=== PATIENT | male | born 1975 | race Caucasian/White ===

== ENCOUNTER 2019-05-17 22:13 | Inpatient (IN) ==
[2019-05-17] MEDS ORDERED: Sodium Bicarbonate 50 MEQ/50 ML VIAL ONE (22:21)
[2019-05-17] MEDS ORDERED: 0.9 % Sodium Chloride 1,000 ML ONE (22:23)
[2019-05-17] MEDS ORDERED: 0.9 % Sodium Chloride 1,000 ML IVC ONE (22:32)
[2019-05-17] MEDS ORDERED: *HR* Etomidate 20 MG/10 ML AMPUL IVP ONE (22:39)
[2019-05-17] MEDS ORDERED: Sodium Bicarbonate 50 MEQ/50 ML VIAL IVP ONE (22:39)
[2019-05-17] MEDS ORDERED: *HR* Rocuronium Bromide 50 MG/5 ML VIAL IVP ONE (22:39)
[2019-05-17 23:03] LABS: Basophils # 0.1 K/mcL (0.0-0.2); Basophils % 1.1 %; Eosinophils % 0.8 %; Hematocrit 48.2 % (37.5-50.1); Hemoglobin 17.1 g/dL (12.9-16.9); Immature Granulocytes % 0.4 % (0-4); Lymphocytes # 1.7 K/mcL (0.6-4.6); Lymphocytes % 36.6 %; Mean Corpuscular HGB Conc 35.5 g/dL (31.6-35.5); Mean Corpuscular Volume 98.8 fL (83.0-100.0); Mean Platelet Volume 9.7 fL (9.4-12.4); Monocytes # 0.5 K/mcL (0.0-1.3); Monocytes % 11.4 %; Neutrophils # 2.4 K/mcL (1.6-8.9); Platelet Count 266 K/mcL (140-400); Red Blood Count 4.88 M/mcL (4.19-5.50); Red Cell Distribution Width 11.9 % (11.5-14.5); Segmented Neutrophils % 49.7 %; White Blood Count 4.8 K/mcL (4.3-11.1)
[2019-05-17] MEDS ORDERED: *HR* Midazolam HCl 5 MG/5 ML VIAL IVP STA (23:16)
[2019-05-17] MEDS ORDERED: *HR* Midazolam HCl 5 MG/5 ML VIAL IVP ONE (23:16)
[2019-05-17 23:20] LABS: Acetaminophen < 10 mcg/mL (10-20); Alanine Aminotransferase 20 Units/L (7-52); Albumin 4.7 g/dL (3.5-5.7); Albumin/Globulin Ratio 1.7 (1.1-2.2); Alkaline Phosphatase 51 Units/L (34-104); Aspartate Amino Transferase 25 Units/L (13-39); BUN/Creatinine Ratio 11 (6-26); Bilirubin,Direct 0.1 mg/dL (0.0-0.2); Bilirubin,Indirect 0.3 mg/dL (0.0-1.0); Bilirubin,Total 0.4 mg/dL (0.3-1.0); Blood Urea Nitrogen 9 mg/dL (6-20); Calcium 9.3 mg/dL (8.6-10.3); Carbon Dioxide 28 mEq/L (23-29); Chloride 98 mEq/L (98-107); Ethanol 278 mg/dL (Less than 10); Globulin 2.8 g/dL (2.4-3.5); Glucose 87 mg/dL (70-105); Osmolality,Calculated 286 (280-300); Potassium 3.5 mEq/L (3.5-5.1); Salicylate < 2.5 mg/dL (15.0-30.0); Sodium 139 mEq/L (136-145); Total Protein 7.5 g/dL (6.4-8.9); eGFR For African Americans > 60 (> 60); eGFR For Non-African Americans > 60 (> 60)
[2019-05-17 23:21] LABS: Bilirubin,Urine Negative (Negative); Blood,Urine Negative (Negative); Clarity,Urine Clear (Clear); Color,Urine Yellow (Yellow); Glucose,Urine (UA) Normal (Normal); Ketones,Urine Negative (Negative); Leukocyte Esterase,Urine Negative (Negative); Nitrite,Urine Negative (Negative); Protein,Urine Negative (Neg-Trace); Specific Gravity,Urine 1.008 (1.010-1.025); Urobilinogen,Urine Normal (Normal)
[2019-05-17] MEDS: FentaNYL (PF) 1,000 MCG in 0.9 % Sodium Chloride 80 ML IVC STA (23:37)
[2019-05-17 23:38] LABS: Amphetamine Screen,Urine Negative ng/mL (Cutoff=1000); Barbiturate Screen,Urine Negative ng/mL (Cutoff=200); Benzodiazepines Screen,Urine Negative ng/mL (Cutoff=200); Cannabinoid Screen,Urine Positive ng/mL (Cutoff = 50); Cocaine Screen,Urine Negative ng/mL (Cutoff= 300); Opiate Screen,Urine Negative ng/mL (Cutoff=300); Phencyclidine Screen,Urine Negative ng/mL (Cutoff=25)
[2019-05-17] MEDS ORDERED: *HR* LORazepam 2 MG/ML VIAL ONE (23:42)
[2019-05-17] MEDS ORDERED: *HR* LORazepam 2 MG/ML VIAL IVP ONE (23:45)
[2019-05-17 23:54] LABS: Magnesium 2.2 mg/dL (1.6-2.6)
[2019-05-18] MEDS ORDERED: Naloxone 0.4 MG/ML INJ IVP PRN (01:41)
[2019-05-18] MEDS: Ringers Solution, Lactated 1,000 ML IVC SCH ×5 (03:21→23:41)
[2019-05-18 04:55] LABS: Hematocrit 47.1 % (37.5-50.1); Hemoglobin 16.6 g/dL (12.9-16.9); Mean Corpuscular HGB Conc 35.2 g/dL (31.6-35.5); Mean Corpuscular Hemoglobin 35.3 pg (28.0-33.3); Mean Corpuscular Volume 100.2 fL (83.0-100.0); Mean Platelet Volume 9.7 fL (9.4-12.4); Platelet Count 248 K/mcL (140-400); Red Cell Distribution Width 12.1 % (11.5-14.5); White Blood Count 6.4 K/mcL (4.3-11.1)
[2019-05-18 04:57] LABS: ABG Base Excess 0 mEq/L (-2 to 3); ABG HCO3 24 mEq/L (21-27); ABG Oxygen Saturation 97 % (95-98); ABG PCO2 38 mmHg (35-45); ABG PH 7.41 pH Units (7.32-7.45); ABG PO2 94 mmHg (85-104); ABG TCO2 25 mEq/L (20-26); Blood Gas Modality ASSIST CONTROL; Blood Gas VT 500 cc
[2019-05-18 05:03] LABS: Prothrombin Time 11.7 Seconds (9.4-12.1)
[2019-05-18 05:05] LABS: Activated Partial Thrombo Time 31.3 Seconds (26.0-36.0)
[2019-05-18 05:10] LABS: Alanine Aminotransferase 18 Units/L (7-52); Albumin 4.3 g/dL (3.5-5.7); Albumin/Globulin Ratio 1.7 (1.1-2.2); Alkaline Phosphatase 47 Units/L (34-104); Aspartate Amino Transferase 23 Units/L (13-39); BUN/Creatinine Ratio 12 (6-26); Bilirubin,Total 0.5 mg/dL (0.3-1.0); Blood Urea Nitrogen 10 mg/dL (6-20); Carbon Dioxide 23 mEq/L (23-29); Chloride 104 mEq/L (98-107); Globulin 2.5 g/dL (2.4-3.5); Glucose 67 mg/dL (70-105); Osmolality,Calculated 289 (280-300); Phosphorous 3.3 mg/dL (2.7-4.5); Potassium 3.5 mEq/L (3.5-5.1); Sodium 141 mEq/L (136-145); Total Protein 6.8 g/dL (6.4-8.9); eGFR For African Americans > 60 (> 60); eGFR For Non-African Americans > 60 (> 60)
[2019-05-18 05:12] LABS: Troponin I < 0.03 ng/mL (< 0.04)
[2019-05-18] MEDS: FentaNYL (PF) 1,000 MCG in 0.9 % Sodium Chloride 80 ML IVC STA ×2 (07:00→15:05)
[2019-05-18] MEDS: *HR* Heparin 5,000 UNIT/ML VIAL SQ SCH ×3 (08:10→23:41)
[2019-05-18] MEDS ORDERED: *HR* Etomidate 20 MG/10 ML AMPUL IVP ONE (08:14)
[2019-05-18] MEDS ORDERED: *HR* Rocuronium Bromide 100 MG/10 ML VIAL IVC ONE (08:14)
[2019-05-18] MEDS: *HR* LORazepam 2 MG/ML VIAL IVP PRN (08:17)
[2019-05-18] MEDS ORDERED: Artificial Tears SOLN 15 ML BOTTLE BOTH EYES PRN (08:32)
[2019-05-18] MEDS: Pantoprazole 40 MG VIAL IVP SCH (09:59)
[2019-05-18] MEDS: Chlorhexidine Rinse 15 ML MOUTHWASH MM SCH ×2 (09:59→20:36)
[2019-05-18] MEDS ORDERED: *HR* Dextrose 50 % in Water (Syg) 50 ML SYRINGE IVP ONE (11:14)
[2019-05-18] MEDS: Artificial Tears SOLN 15 ML BOTTLE BOTH EYES SCH ×4 (11:42→23:42)
[2019-05-18] MEDS: *HR* Dextrose 50 % in Water (Syg) 50 ML SYRINGE IVP PRN ×6 (15:09→22:43)
[2019-05-18] MEDS ORDERED: D5% in Water 1,000 ML IVC SCH (16:00)
[2019-05-18] MEDS: FentaNYL (PF) 1,000 MCG in 0.9 % Sodium Chloride 80 ML IVC SCH (22:15)
[2019-05-18] MEDS: D10% in Water 500 ML IVC SCH (23:38)
[2019-05-19] MEDS: Artificial Tears SOLN 15 ML BOTTLE BOTH EYES SCH ×6 (04:10→23:29)
[2019-05-19] MEDS: D10% in Water 500 ML IVC SCH ×3 (04:12→12:32)
[2019-05-19 04:50] LABS: ABG Base Excess 3 mEq/L (-2 to 3); ABG HCO3 29 mEq/L (21-27); ABG Oxygen Saturation 94 % (95-98); ABG PCO2 44 mmHg (35-45); ABG PH 7.42 pH Units (7.32-7.45); ABG PO2 70 mmHg (85-104); ABG TCO2 30 mEq/L (20-26); Blood Gas Modality ASSIST CONTROL; Blood Gas VT 500 cc
[2019-05-19] MEDS: Ringers Solution, Lactated 1,000 ML IVC SCH ×2 (07:26→11:38)
[2019-05-19] MEDS: Chlorhexidine Rinse 15 ML MOUTHWASH MM SCH ×2 (07:30→20:06)
[2019-05-19] MEDS: *HR* Heparin 5,000 UNIT/ML VIAL SQ SCH (07:30)
[2019-05-19] MEDS: Pantoprazole 40 MG VIAL IVP SCH (07:30)
[2019-05-19] MEDS: *HR* Dextrose 50 % in Water (Syg) 50 ML SYRINGE IVP PRN ×3 (11:10→13:33)
[2019-05-19] MEDS: FentaNYL (PF) 1,000 MCG in 0.9 % Sodium Chloride 80 ML IVC SCH (11:37)
[2019-05-19 11:55] LABS: ABG Base Excess 3 mEq/L (-2 to 3); ABG HCO3 30 mEq/L (21-27); ABG Oxygen Saturation 91 % (95-98); ABG PCO2 54 mmHg (35-45); ABG PH 7.36 pH Units (7.32-7.45); ABG PO2 64 mmHg (85-104); ABG TCO2 32 mEq/L (20-26); Blood Gas Modality VC; Blood Gas VT 500 cc
[2019-05-19] MEDS ORDERED: Aminoglycoside Consult 1 EACH MC ONE (12:51)
[2019-05-19] MEDS ORDERED: Isovue-370 500 ML BOTTLE IVP ONE (12:57)
[2019-05-19 13:41] LABS: Prothrombin Time 11.5 Seconds (9.4-12.1)
[2019-05-19 14:03] LABS: Basophils % 0.6 %; Eosinophils # 0.1 K/mcL (0.0-0.6); Eosinophils % 1.2 %; Hematocrit 45.1 % (37.5-50.1); Hemoglobin 15.3 g/dL (12.9-16.9); Immature Granulocytes % 0.3 % (0-4); Lymphocytes # 1.3 K/mcL (0.6-4.6); Lymphocytes % 19.4 %; Mean Corpuscular HGB Conc 33.9 g/dL (31.6-35.5); Mean Corpuscular Hemoglobin 34.8 pg (28.0-33.3); Mean Platelet Volume 9.5 fL (9.4-12.4); Monocytes # 1.1 K/mcL (0.0-1.3); Monocytes % 15.6 %; Neutrophils # 4.2 K/mcL (1.6-8.9); Platelet Count 177 K/mcL (140-400); Red Cell Distribution Width 12.4 % (11.5-14.5); Segmented Neutrophils % 62.9 %; White Blood Count 6.7 K/mcL (4.3-11.1)
[2019-05-19] MEDS ORDERED: *HR* Heparin 5,000 UNIT/ML VIAL IVP ONE (14:03)
[2019-05-19] MEDS ORDERED: *HR* Heparin 5,000 UNIT/ML VIAL IVP PRN (14:03)
[2019-05-19 14:04] LABS: BUN/Creatinine Ratio 11 (6-26); Blood Urea Nitrogen 10 mg/dL (6-20); Calcium 8.6 mg/dL (8.6-10.3); Carbon Dioxide 17 mEq/L (23-29); Chloride 95 mEq/L (98-107); Glucose 74 mg/dL (70-105); Osmolality,Calculated 266 (280-300); Phosphorous 4.8 mg/dL (2.7-4.5); Potassium 3.6 mEq/L (3.5-5.1); Sodium 129 mEq/L (136-145); eGFR For African Americans > 60 (> 60); eGFR For Non-African Americans > 60 (> 60)
[2019-05-19 14:04] LABS: Mean Corpuscular Volume 102.5 fL (83.0-100.0)
[2019-05-19] MEDS ORDERED: Perflutren Lipid Microsphere 1.3 ML in 0.9 % Sodium Chloride 8.7 ML IVP ONE (14:48)
[2019-05-19] MEDS ORDERED: Perflutren Lipid Microsphere 2 ML VIAL ONE (14:59)
[2019-05-19] MEDS: Heparin 25,000 UNIT/250 ML D5W 25,000 UNIT/250 ML IV.SOLN IVC SCH (15:15)
[2019-05-19] MEDS ORDERED: D10% in Water 500 ML IVC SCH (15:45)
[2019-05-19] MEDS: WATER IVC SCH (16:18)
[2019-05-19] MEDS: DEXTROSE IVC SCH (16:18)
[2019-05-19] MEDS: NACL IVC SCH (16:18)
[2019-05-19] MEDS: D5 IVC SCH (16:18)
[2019-05-19] MEDS: Doxycycline 100 MG in 0.9 % Sodium Chloride Mini Bag 100 ML IVPB SCH (17:19)
[2019-05-19] MEDS: Piperacillin/Tazobactam 3.375 GM in 0.9 % Sodium Chloride Mini Bag 100 ML IVPB SCH (18:16)
[2019-05-19] MEDS ORDERED: Furosemide 20 MG/2 ML VIAL IVP ONE (22:05)
[2019-05-19] MEDS ORDERED: Hydrocortisone Sodium Succ 100 MG/2 ML VIAL IVP SCH (22:09)
[2019-05-19] MEDS: MethylPREDNISolone 40 MG/ML VIAL IVP SCH (23:09)
[2019-05-20] MEDS: WATER IVC SCH ×4 (00:20→23:12)
[2019-05-20] MEDS: D5 IVC SCH ×4 (00:20→23:12)
[2019-05-20] MEDS: NACL IVC SCH ×4 (00:20→23:12)
[2019-05-20] MEDS: DEXTROSE IVC SCH ×4 (00:20→23:12)
[2019-05-20] MEDS: Ringers Solution, Lactated 1,000 ML IVC SCH ×4 (00:21→23:12)
[2019-05-20] MEDS: Piperacillin/Tazobactam 3.375 GM in 0.9 % Sodium Chloride Mini Bag 100 ML IVPB SCH ×3 (01:35→17:35)
[2019-05-20] MEDS: Artificial Tears SOLN 15 ML BOTTLE BOTH EYES SCH ×6 (03:43→23:44)
[2019-05-20 04:17] LABS: ABG Base Excess 5 mEq/L (-2 to 3); ABG HCO3 31 mEq/L (21-27); ABG Oxygen Saturation 96 % (95-98); ABG PCO2 50 mmHg (35-45); ABG PO2 84 mmHg (85-104); ABG TCO2 33 mEq/L (20-26); Blood Gas Modality AF; Blood Gas VT 500 cc
[2019-05-20 05:01] LABS: Basophils % 0.1 %; Hematocrit 43.2 % (37.5-50.1); Hemoglobin 14.9 g/dL (12.9-16.9); Immature Granulocytes % 0.4 % (0-4); Lymphocytes # 0.3 K/mcL (0.6-4.6); Lymphocytes % 4.8 %; Mean Corpuscular HGB Conc 34.5 g/dL (31.6-35.5); Mean Corpuscular Hemoglobin 34.9 pg (28.0-33.3); Mean Corpuscular Volume 101.2 fL (83.0-100.0); Mean Platelet Volume 10.2 fL (9.4-12.4); Monocytes # 0.2 K/mcL (0.0-1.3); Monocytes % 2.3 %; Neutrophils # 6.5 K/mcL (1.6-8.9); Platelet Count 185 K/mcL (140-400); Red Blood Count 4.27 M/mcL (4.19-5.50); Red Cell Distribution Width 11.9 % (11.5-14.5); Segmented Neutrophils % 92.4 %; White Blood Count 7.1 K/mcL (4.3-11.1)
[2019-05-20 05:20] LABS: BUN/Creatinine Ratio 5 (6-26); Blood Urea Nitrogen 5 mg/dL (6-20); Calcium 8.8 mg/dL (8.6-10.3); Carbon Dioxide 29 mEq/L (23-29); Chloride 101 mEq/L (98-107); Glucose 214 mg/dL (70-105); Osmolality,Calculated 286 (280-300); Potassium 3.6 mEq/L (3.5-5.1); Sodium 136 mEq/L (136-145); eGFR For African Americans > 60 (> 60); eGFR For Non-African Americans > 60 (> 60)
[2019-05-20] MEDS: MethylPREDNISolone 40 MG/ML VIAL IVP SCH (05:33)
[2019-05-20] MEDS: Doxycycline 100 MG in 0.9 % Sodium Chloride Mini Bag 100 ML IVPB SCH ×2 (05:34→17:34)
[2019-05-20] MEDS: Chlorhexidine Rinse 15 ML MOUTHWASH MM SCH ×2 (08:17→20:04)
[2019-05-20] MEDS: Pantoprazole 40 MG VIAL IVP SCH (08:17)
[2019-05-20] MEDS ORDERED: Thiamine (B-1) 100 MG in 0.9 % Sodium Chloride 50 ML IVPB ONE (08:21)
[2019-05-20] MEDS: Multivitamin Liquid 15 ML UDC GTUBE SCH (09:52)
[2019-05-20 10:14] LABS: Alanine Aminotransferase 11 Units/L (7-52); Albumin 3.6 g/dL (3.5-5.7); Albumin/Globulin Ratio 1.4 (1.1-2.2); Alkaline Phosphatase 48 Units/L (34-104); Aspartate Amino Transferase 13 Units/L (13-39); Bilirubin,Direct 0.1 mg/dL (0.0-0.2); Bilirubin,Indirect 0.3 mg/dL (0.0-1.0); Bilirubin,Total 0.4 mg/dL (0.3-1.0); Globulin 2.5 g/dL (2.4-3.5); Total Protein 6.1 g/dL (6.4-8.9)
[2019-05-20 10:26] LABS: Thyroid Stimulating Hormone 0.567 mcIU/mL (0.340-5.600)
[2019-05-20] MEDS: Hydrocortisone Sodium Succ 100 MG/2 ML VIAL IVP SCH ×3 (12:02→23:46)
[2019-05-20] MEDS: Heparin 25,000 UNIT/250 ML D5W 25,000 UNIT/250 ML IV.SOLN IVC SCH (15:00)
[2019-05-20] MEDS: Sennosides 8.6 MG TABLET PO SCH (15:36)
[2019-05-20] MEDS: 0.9 % Sodium Chloride w KCl 20 MEQ/1,000 ML MLS IVC SCH (16:50)
[2019-05-20 17:47] LABS: BUN/Creatinine Ratio 8 (6-26); Blood Urea Nitrogen 6 mg/dL (6-20); Calcium 9.1 mg/dL (8.6-10.3); Carbon Dioxide 23 mEq/L (23-29); Chloride 105 mEq/L (98-107); Glucose 135 mg/dL (70-105); Magnesium 1.8 mg/dL (1.6-2.6); Osmolality,Calculated 288 (280-300); Potassium 3.7 mEq/L (3.5-5.1); Sodium 139 mEq/L (136-145); eGFR For African Americans > 60 (> 60); eGFR For Non-African Americans > 60 (> 60)
[2019-05-21] MEDS: Piperacillin/Tazobactam 3.375 GM in 0.9 % Sodium Chloride Mini Bag 100 ML IVPB SCH ×3 (02:30→17:16)
[2019-05-21] MEDS: 0.9 % Sodium Chloride w KCl 20 MEQ/1,000 ML MLS IVC SCH ×3 (03:43→20:57)
[2019-05-21] MEDS: Artificial Tears SOLN 15 ML BOTTLE BOTH EYES SCH ×6 (03:43→23:19)
[2019-05-21 04:12] LABS: Basophils % 0.1 %; Hemoglobin 14.2 g/dL (12.9-16.9); Immature Granulocytes % 0.5 % (0-4); Lymphocytes % 4.9 %; Mean Corpuscular HGB Conc 33.8 g/dL (31.6-35.5); Mean Corpuscular Hemoglobin 35.1 pg (28.0-33.3); Mean Corpuscular Volume 103.7 fL (83.0-100.0); Mean Platelet Volume 10.5 fL (9.4-12.4); Monocytes % 6.3 %; Platelet Count 193 K/mcL (140-400); Red Blood Count 4.05 M/mcL (4.19-5.50); Red Cell Distribution Width 11.9 % (11.5-14.5); Segmented Neutrophils % 88.2 %
[2019-05-21 04:13] LABS: Lymphocytes # 0.6 K/mcL (0.6-4.6); Monocytes # 0.8 K/mcL (0.0-1.3); Neutrophils # 10.5 K/mcL (1.6-8.9); White Blood Count 11.9 K/mcL (4.3-11.1)
[2019-05-21 04:27] LABS: BUN/Creatinine Ratio 11 (6-26); Blood Urea Nitrogen 8 mg/dL (6-20); Calcium 8.7 mg/dL (8.6-10.3); Carbon Dioxide 25 mEq/L (23-29); Chloride 106 mEq/L (98-107); Glucose 162 mg/dL (70-105); Osmolality,Calculated 290 (280-300); Potassium 4.2 mEq/L (3.5-5.1); Sodium 139 mEq/L (136-145); eGFR For African Americans > 60 (> 60); eGFR For Non-African Americans > 60 (> 60)
[2019-05-21 04:41] LABS: ABG Base Excess 0 mEq/L (-2 to 3); ABG HCO3 26 mEq/L (21-27); ABG Oxygen Saturation 97 % (95-98); ABG PCO2 46 mmHg (35-45); ABG PH 7.36 pH Units (7.32-7.45); ABG PO2 96 mmHg (85-104); ABG TCO2 28 mEq/L (20-26); Blood Gas Modality VC; Blood Gas VT 500 cc
[2019-05-21] MEDS: Doxycycline 100 MG in 0.9 % Sodium Chloride Mini Bag 100 ML IVPB SCH ×2 (05:59→17:15)
[2019-05-21] MEDS: Hydrocortisone Sodium Succ 100 MG/2 ML VIAL IVP SCH ×4 (05:59→23:21)
[2019-05-21] MEDS: WATER IVC SCH (07:56)
[2019-05-21] MEDS: NACL IVC SCH (07:56)
[2019-05-21] MEDS: Ringers Solution, Lactated 1,000 ML IVC SCH ×3 (07:56→20:49)
[2019-05-21] MEDS: DEXTROSE IVC SCH (07:56)
[2019-05-21] MEDS: D5 IVC SCH (07:56)
[2019-05-21] MEDS: Sennosides 8.6 MG TABLET PO SCH (09:07)
[2019-05-21] MEDS: Chlorhexidine Rinse 15 ML MOUTHWASH MM SCH ×2 (09:07→19:58)
[2019-05-21] MEDS: Multivitamin Liquid 15 ML UDC GTUBE SCH (09:07)
[2019-05-21] MEDS: Pantoprazole 40 MG VIAL IVP SCH (09:07)
[2019-05-21] MEDS: Thiamine (B-1) 100 MG in 0.9 % Sodium Chloride 50 ML IVPB SCH (09:10)
[2019-05-21] MEDS: Heparin 25,000 UNIT/250 ML D5W 25,000 UNIT/250 ML IV.SOLN IVC SCH (13:45)
[2019-05-21 17:22] LABS: Basophils % 0.1 %; Hematocrit 40.1 % (37.5-50.1); Hemoglobin 13.6 g/dL (12.9-16.9); Immature Granulocytes % 0.6 % (0-4); Lymphocytes # 0.4 K/mcL (0.6-4.6); Mean Corpuscular HGB Conc 33.9 g/dL (31.6-35.5); Mean Corpuscular Volume 106.1 fL (83.0-100.0); Mean Platelet Volume 10.6 fL (9.4-12.4); Monocytes # 0.7 K/mcL (0.0-1.3); Monocytes % 6.9 %; Neutrophils # 9.4 K/mcL (1.6-8.9); Platelet Count 205 K/mcL (140-400); Red Blood Count 3.78 M/mcL (4.19-5.50); Segmented Neutrophils % 88.4 %; White Blood Count 10.6 K/mcL (4.3-11.1)
[2019-05-22] MEDS: *HR* Dextrose 50 % in Water (Syg) 50 ML SYRINGE IVP PRN ×3 (01:37→05:22)
[2019-05-22] MEDS: Piperacillin/Tazobactam 3.375 GM in 0.9 % Sodium Chloride Mini Bag 100 ML IVPB SCH ×3 (01:37→17:28)
[2019-05-22] MEDS: Artificial Tears SOLN 15 ML BOTTLE BOTH EYES SCH ×5 (03:45→20:22)
[2019-05-22 04:51] LABS: ABG Base Excess 6 mEq/L (-2 to 3); ABG HCO3 31 mEq/L (21-27); ABG Oxygen Saturation 94 % (95-98); ABG PCO2 47 mmHg (35-45); ABG PH 7.43 pH Units (7.32-7.45); ABG PO2 71 mmHg (85-104); ABG TCO2 32 mEq/L (20-26); Blood Gas Modality ASSIST CONTROL; Blood Gas VT 500 cc
[2019-05-22 05:01] LABS: Hematocrit 38.2 % (37.5-50.1); Hemoglobin 12.8 g/dL (12.9-16.9); Immature Granulocytes % 0.5 % (0-4); Lymphocytes # 0.7 K/mcL (0.6-4.6); Lymphocytes % 7.7 %; Mean Corpuscular HGB Conc 33.5 g/dL (31.6-35.5); Mean Corpuscular Hemoglobin 35.6 pg (28.0-33.3); Mean Corpuscular Volume 106.1 fL (83.0-100.0); Mean Platelet Volume 10.4 fL (9.4-12.4); Monocytes # 0.7 K/mcL (0.0-1.3); Monocytes % 7.9 %; Neutrophils # 7.8 K/mcL (1.6-8.9); Platelet Count 222 K/mcL (140-400); Red Cell Distribution Width 11.9 % (11.5-14.5); Segmented Neutrophils % 83.9 %; White Blood Count 9.2 K/mcL (4.3-11.1)
[2019-05-22 05:17] LABS: Alanine Aminotransferase 10 Units/L (7-52); Albumin 3.2 g/dL (3.5-5.7); Albumin/Globulin Ratio 1.4 (1.1-2.2); Alkaline Phosphatase 39 Units/L (34-104); Aspartate Amino Transferase 13 Units/L (13-39); BUN/Creatinine Ratio 18 (6-26); Bilirubin,Total 0.3 mg/dL (0.3-1.0); Blood Urea Nitrogen 12 mg/dL (6-20); Calcium 8.4 mg/dL (8.6-10.3); Carbon Dioxide 28 mEq/L (23-29); Chloride 107 mEq/L (98-107); Globulin 2.3 g/dL (2.4-3.5); Glucose 217 mg/dL (70-105); Osmolality,Calculated 298 (280-300); Potassium 3.8 mEq/L (3.5-5.1); Sodium 141 mEq/L (136-145); Total Protein 5.5 g/dL (6.4-8.9); eGFR For African Americans > 60 (> 60); eGFR For Non-African Americans > 60 (> 60)
[2019-05-22] MEDS ORDERED: D5% in 0.9% NACL 1,000 ML IVC SCH (05:30)
[2019-05-22 05:48] LABS: Lipase 48 Units/L (11-82)
[2019-05-22] MEDS: Doxycycline 100 MG in 0.9 % Sodium Chloride Mini Bag 100 ML IVPB SCH (06:05)
[2019-05-22] MEDS: Hydrocortisone Sodium Succ 100 MG/2 ML VIAL IVP SCH ×2 (06:06→11:21)
[2019-05-22] MEDS: 0.9 % Sodium Chloride w KCl 20 MEQ/1,000 ML MLS IVC SCH (07:46)
[2019-05-22] MEDS: Ringers Solution, Lactated 1,000 ML IVC SCH (07:46)
[2019-05-22] MEDS: Multivitamin Liquid 15 ML UDC GTUBE SCH (07:47)
[2019-05-22] MEDS: Sennosides 8.6 MG TABLET PO SCH ×2 (07:47→20:03)
[2019-05-22] MEDS: Chlorhexidine Rinse 15 ML MOUTHWASH MM SCH ×2 (07:47→20:03)
[2019-05-22] MEDS: Pantoprazole 40 MG VIAL IVP SCH (07:47)
[2019-05-22] MEDS ORDERED: Furosemide 20 MG/2 ML VIAL IVP ONE (08:07)
[2019-05-22] MEDS: Dexmedetomidine HCl 400 MCG/100 ML MLS IVC SCH ×4 (09:21→21:47)
[2019-05-22] MEDS: Thiamine (B-1) 100 MG in 0.9 % Sodium Chloride 50 ML IVPB SCH (09:26)
[2019-05-22] MEDS ORDERED: Hydrocortisone Sodium Succ 100 MG/2 ML VIAL IVP SCH ×2 (11:45→20:00)
[2019-05-22] MEDS: amLODIPine 5 MG TABLET PO SCH (14:21)
[2019-05-22] MEDS: Heparin 25,000 UNIT/250 ML D5W 25,000 UNIT/250 ML IV.SOLN IVC SCH (17:05)
[2019-05-22] MEDS ORDERED: hydrALAZINE 25 MG TABLET PO SCH (18:00)
[2019-05-22] MEDS ORDERED: hydrALAZINE 25 MG TABLET PO ONE (19:11)
[2019-05-23] MEDS: Dexmedetomidine HCl 400 MCG/100 ML MLS IVC SCH ×6 (00:48→21:29)
[2019-05-23] MEDS: Artificial Tears SOLN 15 ML BOTTLE BOTH EYES SCH ×6 (01:26→20:22)
[2019-05-23] MEDS: Piperacillin/Tazobactam 3.375 GM in 0.9 % Sodium Chloride Mini Bag 100 ML IVPB SCH (01:32)
[2019-05-23] MEDS ORDERED: hydrALAZINE 25 MG TABLET PO SCH (02:00)
[2019-05-23] MEDS: Heparin 25,000 UNIT/250 ML D5W 25,000 UNIT/250 ML IV.SOLN IVC SCH ×2 (04:11→14:35)
[2019-05-23 04:25] LABS: ABG Base Excess 8 mEq/L (-2 to 3); ABG HCO3 34 mEq/L (21-27); ABG Oxygen Saturation 96 % (95-98); ABG PCO2 53 mmHg (35-45); ABG PH 7.41 pH Units (7.32-7.45); ABG PO2 80 mmHg (85-104); ABG TCO2 36 mEq/L (20-26); Blood Gas Modality AF; Blood Gas VT 500 cc
[2019-05-23] MEDS: *HR* Heparin 5,000 UNIT/ML VIAL IVP PRN (04:32)
[2019-05-23 07:52] LABS: Basophils % 0.1 %; Eosinophils # 0.1 K/mcL (0.0-0.6); Eosinophils % 0.7 %; Hematocrit 40.4 % (37.5-50.1); Hemoglobin 13.5 g/dL (12.9-16.9); Immature Granulocytes % 0.4 % (0-4); Lymphocytes # 1.4 K/mcL (0.6-4.6); Lymphocytes % 19.1 %; Mean Corpuscular HGB Conc 33.4 g/dL (31.6-35.5); Mean Corpuscular Hemoglobin 35.2 pg (28.0-33.3); Mean Corpuscular Volume 105.2 fL (83.0-100.0); Mean Platelet Volume 10.8 fL (9.4-12.4); Monocytes % 13.4 %; Platelet Count 193 K/mcL (140-400); Red Blood Count 3.84 M/mcL (4.19-5.50); Red Cell Distribution Width 11.9 % (11.5-14.5); Segmented Neutrophils % 66.3 %; White Blood Count 7.5 K/mcL (4.3-11.1)
[2019-05-23 08:18] LABS: Platelet Estimate Normal (Normal)
[2019-05-23 08:53] LABS: Alanine Aminotransferase 10 Units/L (7-52); Albumin 3.1 g/dL (3.5-5.7); Albumin/Globulin Ratio 1.4 (1.1-2.2); Alkaline Phosphatase 39 Units/L (34-104); Aspartate Amino Transferase 12 Units/L (13-39); BUN/Creatinine Ratio 17 (6-26); Bilirubin,Total 0.2 mg/dL (0.3-1.0); Blood Urea Nitrogen 11 mg/dL (6-20); Calcium 8.4 mg/dL (8.6-10.3); Carbon Dioxide 31 mEq/L (23-29); Chloride 107 mEq/L (98-107); Globulin 2.2 g/dL (2.4-3.5); Glucose 119 mg/dL (70-105); Magnesium 1.9 mg/dL (1.6-2.6); Osmolality,Calculated 305 (280-300); Potassium 2.8 mEq/L (3.5-5.1); Sodium 147 mEq/L (136-145); Total Protein 5.3 g/dL (6.4-8.9); eGFR For African Americans > 60 (> 60); eGFR For Non-African Americans > 60 (> 60)
[2019-05-23] MEDS ORDERED: amLODIPine 5 MG TABLET PO SCH (09:00)
[2019-05-23] MEDS: Chlorhexidine Rinse 15 ML MOUTHWASH MM SCH ×2 (09:49→20:17)
[2019-05-23] MEDS: Pantoprazole 40 MG VIAL IVP SCH (09:49)
[2019-05-23] MEDS: Sennosides 8.6 MG TABLET PO SCH ×2 (09:49→20:18)
[2019-05-23] MEDS: amLODIPine 5 MG TABLET PO SCH (09:49)
[2019-05-23] MEDS: Multivitamin Liquid 15 ML UDC GTUBE SCH (09:49)
[2019-05-23] MEDS: Thiamine (B-1) 100 MG in 0.9 % Sodium Chloride 50 ML IVPB SCH (09:54)
[2019-05-23] MEDS: Furosemide 20 MG/2 ML VIAL IVP SCH (09:54)
[2019-05-23] MEDS ORDERED: Potassium Chloride Elixir 20 MEQ/15 ML UDC GTUBE ONE (19:08)
[2019-05-24] MEDS: Artificial Tears SOLN 15 ML BOTTLE BOTH EYES SCH ×7 (00:08→22:58)
[2019-05-24] MEDS: Piperacillin/Tazobactam 3.375 GM in 0.9 % Sodium Chloride Mini Bag 100 ML IVPB SCH (00:14)
[2019-05-24] MEDS: Dexmedetomidine HCl 400 MCG/100 ML MLS IVC SCH ×7 (02:19→23:55)
[2019-05-24 03:25] LABS: Adenovirus Not Detected (Not Detect); Bordetella Pertussis Not Detected (Not Detect); Chlamydophila pneumoniae Not Detected (Not Detect); Coronavirus 229E Not Detected (Not Detect); Coronavirus HKU1 Not Detected (Not Detect); Coronavirus NL63 Not Detected (Not Detect); Coronavirus OC43 Not Detected (Not Detect); Human Metapneumovirus Not Detected (Not Detect); Human Rhinovirus/Enterovirus Not Detected (Not Detect); Influenza A Subtype 2009 H1 Not Detected (Not Detect); Influenza A Untypeable Not Detected (Not Detect); Influenza B Not Detected (Not Detect); Mycoplasma pneumoniae Not Detected (Not Detect); Parainfluenza Virus 1 Not Detected (Not Detect); Parainfluenza Virus 2 Not Detected (Not Detect); Parainfluenza Virus 3 Not Detected (Not Detect); Parainfluenza Virus 4 Not Detected (Not Detect); Respiratory Syncytial Virus Not Detected (Not Detect)
[2019-05-24 04:59] LABS: ABG Base Excess 8 mEq/L (-2 to 3); ABG HCO3 35 mEq/L (21-27); ABG Oxygen Saturation 96 % (95-98); ABG PCO2 54 mmHg (35-45); ABG PH 7.42 pH Units (7.32-7.45); ABG PO2 85 mmHg (85-104); ABG TCO2 36 mEq/L (20-26); Blood Gas Modality ASSIST CONTROL; Blood Gas VT 500 cc
[2019-05-24] MEDS: Multivitamin Liquid 15 ML UDC GTUBE SCH (09:11)
[2019-05-24] MEDS: Pantoprazole 40 MG VIAL IVP SCH (09:11)
[2019-05-24] MEDS: Furosemide 20 MG/2 ML VIAL IVP SCH (09:11)
[2019-05-24] MEDS: Chlorhexidine Rinse 15 ML MOUTHWASH MM SCH ×2 (09:11→19:50)
[2019-05-24] MEDS: Sennosides 8.6 MG TABLET PO SCH ×2 (09:12→19:51)
[2019-05-24] MEDS: amLODIPine 5 MG TABLET PO SCH (09:12)
[2019-05-24] MEDS: Thiamine (B-1) 100 MG in 0.9 % Sodium Chloride 50 ML IVPB SCH (09:14)
[2019-05-24] MEDS ORDERED: *HR* Midazolam HCl 2 MG/2 ML VIAL IVP PRN (12:28)
[2019-05-24] MEDS ORDERED: *HR* Midazolam HCl 2 MG/2 ML VIAL ONE (12:29)
[2019-05-24] MEDS ORDERED: *HR* Rocuronium Bromide 50 MG/5 ML VIAL IVP ONE (13:00)
[2019-05-24] MEDS: Heparin 25,000 UNIT/250 ML D5W 25,000 UNIT/250 ML IV.SOLN IVC SCH (13:13)
[2019-05-24 15:33] LABS: BUN/Creatinine Ratio 19 (6-26); Blood Urea Nitrogen 13 mg/dL (6-20); Calcium 8.4 mg/dL (8.6-10.3); Carbon Dioxide 35 mEq/L (23-29); Chloride 103 mEq/L (98-107); Glucose 107 mg/dL (70-105); Osmolality,Calculated 301 (280-300); Potassium 3.7 mEq/L (3.5-5.1); Sodium 145 mEq/L (136-145); eGFR For African Americans > 60 (> 60); eGFR For Non-African Americans > 60 (> 60)
[2019-05-25] MEDS: Artificial Tears SOLN 15 ML BOTTLE BOTH EYES SCH ×6 (03:51→23:24)
[2019-05-25] MEDS: Dexmedetomidine HCl 400 MCG/100 ML MLS IVC SCH ×3 (03:55→16:20)
[2019-05-25 04:36] LABS: ABG Base Excess 8 mEq/L (-2 to 3); ABG HCO3 33 mEq/L (21-27); ABG Oxygen Saturation 94 % (95-98); ABG PCO2 47 mmHg (35-45); ABG PH 7.46 pH Units (7.32-7.45); ABG PO2 68 mmHg (85-104); ABG TCO2 34 mEq/L (20-26); Blood Gas Modality AF; Blood Gas VT 500 cc
[2019-05-25 04:36] LABS: BUN/Creatinine Ratio 24 (6-26); Blood Urea Nitrogen 15 mg/dL (6-20); Calcium 8.8 mg/dL (8.6-10.3); Carbon Dioxide 31 mEq/L (23-29); Chloride 102 mEq/L (98-107); Glucose 102 mg/dL (70-105); Osmolality,Calculated 289 (280-300); Potassium 3.7 mEq/L (3.5-5.1); Sodium 139 mEq/L (136-145); eGFR For African Americans > 60 (> 60); eGFR For Non-African Americans > 60 (> 60)
[2019-05-25 04:49] LABS: Basophils % 0.6 %; Eosinophils # 0.1 K/mcL (0.0-0.6); Hematocrit 37.7 % (37.5-50.1); Hemoglobin 13.2 g/dL (12.9-16.9); Immature Granulocytes % 1.1 % (0-4); Lymphocytes % 30.1 %; Mean Corpuscular Hemoglobin 34.6 pg (28.0-33.3); Mean Platelet Volume 9.8 fL (9.4-12.4); Monocytes # 0.8 K/mcL (0.0-1.3); Monocytes % 11.6 %; Neutrophils # 3.6 K/mcL (1.6-8.9); Platelet Count 238 K/mcL (140-400); Red Blood Count 3.81 M/mcL (4.19-5.50); Segmented Neutrophils % 54.6 %; White Blood Count 6.7 K/mcL (4.3-11.1)
[2019-05-25] MEDS: *HR* Heparin 5,000 UNIT/ML VIAL IVP PRN (04:52)
[2019-05-25] MEDS: amLODIPine 5 MG TABLET PO SCH (08:55)
[2019-05-25] MEDS: Pantoprazole 40 MG VIAL IVP SCH (08:55)
[2019-05-25] MEDS: Multivitamin Liquid 15 ML UDC GTUBE SCH (08:55)
[2019-05-25] MEDS: Sennosides 8.6 MG TABLET PO SCH ×2 (08:55→20:00)
[2019-05-25] MEDS: Chlorhexidine Rinse 15 ML MOUTHWASH MM SCH ×2 (08:55→20:00)
[2019-05-25] MEDS: Thiamine (B-1) 100 MG in 0.9 % Sodium Chloride 50 ML IVPB SCH (10:22)
[2019-05-25] MEDS: Heparin 25,000 UNIT/250 ML D5W 25,000 UNIT/250 ML IV.SOLN IVC SCH (11:39)
[2019-05-26] MEDS: Heparin 25,000 UNIT/250 ML D5W 25,000 UNIT/250 ML IV.SOLN IVC SCH ×2 (03:19→20:48)
[2019-05-26 03:32] LABS: Basophils # 0.1 K/mcL (0.0-0.2); Basophils % 0.6 %; Eosinophils # 0.2 K/mcL (0.0-0.6); Eosinophils % 2.2 %; Hematocrit 38.6 % (37.5-50.1); Hemoglobin 13.5 g/dL (12.9-16.9); Immature Granulocytes % 2.3 % (0-4); Lymphocytes # 1.3 K/mcL (0.6-4.6); Lymphocytes % 16.1 %; Mean Corpuscular Hemoglobin 35.2 pg (28.0-33.3); Mean Corpuscular Volume 100.8 fL (83.0-100.0); Mean Platelet Volume 9.8 fL (9.4-12.4); Monocytes # 1.4 K/mcL (0.0-1.3); Monocytes % 17.4 %; Neutrophils # 4.8 K/mcL (1.6-8.9); Platelet Count 263 K/mcL (140-400); Red Blood Count 3.83 M/mcL (4.19-5.50); Red Cell Distribution Width 12.4 % (11.5-14.5); Segmented Neutrophils % 61.4 %; White Blood Count 7.8 K/mcL (4.3-11.1)
[2019-05-26] MEDS: Artificial Tears SOLN 15 ML BOTTLE BOTH EYES SCH ×6 (03:40→23:56)
[2019-05-26 03:51] LABS: Alanine Aminotransferase 50 Units/L (7-52); Albumin 3.1 g/dL (3.5-5.7); Albumin/Globulin Ratio 1.2 (1.1-2.2); Alkaline Phosphatase 56 Units/L (34-104); Aspartate Amino Transferase 47 Units/L (13-39); BUN/Creatinine Ratio 30 (6-26); Bilirubin,Total 0.3 mg/dL (0.3-1.0); Blood Urea Nitrogen 21 mg/dL (6-20); Calcium 8.7 mg/dL (8.6-10.3); Carbon Dioxide 29 mEq/L (23-29); Chloride 101 mEq/L (98-107); Globulin 2.5 g/dL (2.4-3.5); Glucose 98 mg/dL (70-105); Magnesium 2.2 mg/dL (1.6-2.6); Osmolality,Calculated 287 (280-300); Potassium 4.2 mEq/L (3.5-5.1); Sodium 137 mEq/L (136-145); Total Protein 5.6 g/dL (6.4-8.9); eGFR For African Americans > 60 (> 60); eGFR For Non-African Americans > 60 (> 60)
[2019-05-26 05:04] LABS: ABG Base Excess 7 mEq/L (-2 to 3); ABG HCO3 31 mEq/L (21-27); ABG Oxygen Saturation 93 % (95-98); ABG PCO2 43 mmHg (35-45); ABG PH 7.47 pH Units (7.32-7.45); ABG PO2 65 mmHg (85-104); ABG TCO2 32 mEq/L (20-26); Blood Gas Modality ASSIST CONTROL; Blood Gas VT 500 cc
[2019-05-26] MEDS: Pantoprazole 40 MG VIAL IVP SCH (07:28)
[2019-05-26] MEDS: Sennosides 8.6 MG TABLET PO SCH ×2 (07:28→20:47)
[2019-05-26] MEDS: Multivitamin Liquid 15 ML UDC GTUBE SCH (07:28)
[2019-05-26] MEDS: Chlorhexidine Rinse 15 ML MOUTHWASH MM SCH ×2 (07:28→20:47)
[2019-05-26] MEDS: amLODIPine 5 MG TABLET PO SCH (07:29)
[2019-05-26] MEDS: Furosemide 20 MG/2 ML VIAL IVP SCH (08:52)
[2019-05-26] MEDS ORDERED: Potassium Chloride Elixir 20 MEQ/15 ML UDC GTUBE SCH (09:00)
[2019-05-26] MEDS: Thiamine (B-1) 100 MG in 0.9 % Sodium Chloride 50 ML IVPB SCH (09:34)
[2019-05-26] MEDS ORDERED: Furosemide 40 MG/4 ML VIAL ONE (10:18)
[2019-05-26] MEDS: Dexmedetomidine HCl 400 MCG/100 ML MLS IVC SCH ×3 (12:31→21:28)
[2019-05-27] MEDS: Dexmedetomidine HCl 400 MCG/100 ML MLS IVC SCH ×3 (00:43→07:44)
[2019-05-27] MEDS: Artificial Tears SOLN 15 ML BOTTLE BOTH EYES SCH ×7 (00:47→19:33)
[2019-05-27 04:44] LABS: Basophils % 0.2 %; Eosinophils % 0.1 %; Hematocrit 39.9 % (37.5-50.1); Hemoglobin 13.9 g/dL (12.9-16.9); Lymphocytes % 7.1 %; Mean Corpuscular HGB Conc 34.8 g/dL (31.6-35.5); Mean Corpuscular Hemoglobin 34.1 pg (28.0-33.3); Mean Corpuscular Volume 97.8 fL (83.0-100.0); Mean Platelet Volume 10.1 fL (9.4-12.4); Monocytes # 2.2 K/mcL (0.0-1.3); Neutrophils # 10.3 K/mcL (1.6-8.9); Platelet Count 311 K/mcL (140-400); Red Blood Count 4.08 M/mcL (4.19-5.50); Red Cell Distribution Width 11.9 % (11.5-14.5); Segmented Neutrophils % 75.6 %
[2019-05-27 04:58] LABS: White Blood Count 13.6 K/mcL (4.3-11.1)
[2019-05-27 05:13] LABS: BUN/Creatinine Ratio 20 (6-26); Blood Urea Nitrogen 13 mg/dL (6-20); Calcium 9.7 mg/dL (8.6-10.3); Carbon Dioxide 24 mEq/L (23-29); Chloride 100 mEq/L (98-107); Glucose 114 mg/dL (70-105); Osmolality,Calculated 279 (280-300); Potassium 4.6 mEq/L (3.5-5.1); Sodium 134 mEq/L (136-145); eGFR For African Americans > 60 (> 60); eGFR For Non-African Americans > 60 (> 60)
[2019-05-27] MEDS: *HR* Heparin 5,000 UNIT/ML VIAL IVP PRN (05:22)
[2019-05-27] MEDS: Pantoprazole 40 MG VIAL IVP SCH (07:45)
[2019-05-27] MEDS: amLODIPine 5 MG TABLET PO SCH (07:45)
[2019-05-27] MEDS: Chlorhexidine Rinse 15 ML MOUTHWASH MM SCH ×2 (07:45→19:33)
[2019-05-27] MEDS: Potassium Chloride Elixir 20 MEQ/15 ML UDC GTUBE SCH (07:45)
[2019-05-27] MEDS: Furosemide 20 MG/2 ML VIAL IVP SCH (07:45)
[2019-05-27] MEDS: Multivitamin Liquid 15 ML UDC GTUBE SCH (07:45)
[2019-05-27] MEDS: Sennosides 8.6 MG TABLET PO SCH ×2 (07:45→19:34)
[2019-05-27] MEDS: Thiamine (B-1) 100 MG in 0.9 % Sodium Chloride 50 ML IVPB SCH (08:23)
[2019-05-27] MEDS ORDERED: *HR* Metoprolol 5 MG/5 ML VIAL IVP ONE (08:30)
[2019-05-27] MEDS ORDERED: *HR* Succinylcholine 200 MG/10 ML VIAL IVP ONE (09:17)
[2019-05-27] MEDS ORDERED: *HR* Propofol 200 MG/20 ML VIAL IVP ONE (09:17)
[2019-05-27] MEDS ORDERED: *HR* Etomidate 20 MG/10 ML AMPUL IVP ONE (09:17)
[2019-05-27] MEDS ORDERED: Artificial Tears SOLN 15 ML BOTTLE BOTH EYES PRN (11:13)
[2019-05-27 12:12] LABS: ABG Base Excess 3 mEq/L (-2 to 3); ABG HCO3 27 mEq/L (21-27); ABG Oxygen Saturation 98 % (95-98); ABG PCO2 41 mmHg (35-45); ABG PH 7.44 pH Units (7.32-7.45); ABG PO2 96 mmHg (85-104); ABG TCO2 29 mEq/L (20-26); Blood Gas VT 500 cc
[2019-05-27] MEDS: levoFLOXacin 750 MG/150 ML 750 MG/150 ML BAG IVPB SCH (13:04)
[2019-05-27] MEDS ORDERED: Thiamine (B-1) 100 MG, Folic Acid 1 MG, MVI, adult with vitamin K 10 ML in 0.9 % Sodi... IVPB ONE (15:00)
[2019-05-27] MEDS ORDERED: Thiamine (B-1) 100 MG, Folic Acid 1 MG, MVI, adult with vitamin K 10 ML in 0.9 % Sodi... IVPB SCH (15:00)
[2019-05-27] MEDS: Thiamine (B-1) 100 MG TABLET PO SCH (15:28)
[2019-05-27 16:12] LABS: ABG Base Excess 3 mEq/L (-2 to 3); ABG HCO3 28 mEq/L (21-27); ABG Oxygen Saturation 99 % (95-98); ABG PCO2 45 mmHg (35-45); ABG PO2 125 mmHg (85-104); ABG TCO2 30 mEq/L (20-26); Blood Gas VT 500 cc
[2019-05-27] MEDS ORDERED: Chlorhexidine Rinse 15 ML MOUTHWASH MM SCH (21:00)
[2019-05-28] MEDS: Artificial Tears SOLN 15 ML BOTTLE BOTH EYES SCH ×7 (00:14→23:39)
[2019-05-28] MEDS: Thiamine (B-1) 100 MG TABLET PO SCH ×4 (00:14→23:40)
[2019-05-28 03:30] LABS: Basophils % 0.3 %; Eosinophils # 0.1 K/mcL (0.0-0.6); Eosinophils % 1.1 %; Hematocrit 41.8 % (37.5-50.1); Hemoglobin 14.3 g/dL (12.9-16.9); Lymphocytes # 1.1 K/mcL (0.6-4.6); Lymphocytes % 8.9 %; Mean Corpuscular HGB Conc 34.2 g/dL (31.6-35.5); Mean Corpuscular Hemoglobin 34.5 pg (28.0-33.3); Mean Corpuscular Volume 100.7 fL (83.0-100.0); Mean Platelet Volume 9.4 fL (9.4-12.4); Monocytes # 2.5 K/mcL (0.0-1.3); Monocytes % 19.8 %; Neutrophils # 8.5 K/mcL (1.6-8.9); Platelet Count 308 K/mcL (140-400); Red Blood Count 4.15 M/mcL (4.19-5.50); Red Cell Distribution Width 12.2 % (11.5-14.5); Segmented Neutrophils % 68.9 %; White Blood Count 12.4 K/mcL (4.3-11.1)
[2019-05-28 03:32] LABS: Heparin anti-factor XA UFH 0.03 IU/mL (0.30-0.70); INR 1.3; Prothrombin Time 14.9 Seconds (9.4-12.1)
[2019-05-28 03:35] LABS: Activated Partial Thrombo Time 36.9 Seconds (26.0-36.0)
[2019-05-28 03:45] LABS: Alanine Aminotransferase 34 Units/L (7-52); Albumin 3.7 g/dL (3.5-5.7); Albumin/Globulin Ratio 1.2 (1.1-2.2); Alkaline Phosphatase 60 Units/L (34-104); Aspartate Amino Transferase 18 Units/L (13-39); BUN/Creatinine Ratio 27 (6-26); Bilirubin,Total 0.4 mg/dL (0.3-1.0); Blood Urea Nitrogen 22 mg/dL (6-20); Calcium 9.4 mg/dL (8.6-10.3); Carbon Dioxide 24 mEq/L (23-29); Chloride 97 mEq/L (98-107); Globulin 3.2 g/dL (2.4-3.5); Glucose 98 mg/dL (70-105); Osmolality,Calculated 281 (280-300); Phosphorous 4.2 mg/dL (2.7-4.5); Potassium 4.5 mEq/L (3.5-5.1); Sodium 134 mEq/L (136-145); Total Protein 6.9 g/dL (6.4-8.9); eGFR For African Americans > 60 (> 60); eGFR For Non-African Americans > 60 (> 60)
[2019-05-28 04:23] LABS: ABG Base Excess 3 mEq/L (-2 to 3); ABG HCO3 31 mEq/L (21-27); ABG Oxygen Saturation 97 % (95-98); ABG PCO2 57 mmHg (35-45); ABG PH 7.34 pH Units (7.32-7.45); ABG PO2 94 mmHg (85-104); ABG TCO2 32 mEq/L (20-26); Blood Gas Modality VC; Blood Gas VT 500 cc
[2019-05-28 04:35] LABS: Platelet Estimate Normal (Normal)
[2019-05-28] MEDS: Furosemide 20 MG/2 ML VIAL IVP SCH (08:17)
[2019-05-28] MEDS: Pantoprazole 40 MG VIAL IVP SCH (08:17)
[2019-05-28] MEDS: Multivitamin Liquid 15 ML UDC GTUBE SCH (08:17)
[2019-05-28] MEDS: Chlorhexidine Rinse 15 ML MOUTHWASH MM SCH ×2 (08:17→19:22)
[2019-05-28] MEDS: Sennosides 8.6 MG TABLET PO SCH ×2 (08:18→19:22)
[2019-05-28] MEDS: amLODIPine 5 MG TABLET PO SCH (08:18)
[2019-05-28] MEDS: levoFLOXacin 750 MG/150 ML 750 MG/150 ML BAG IVPB SCH (08:18)
[2019-05-28] MEDS: Potassium Chloride Elixir 20 MEQ/15 ML UDC GTUBE SCH (08:41)
[2019-05-28] MEDS: Heparin 25,000 UNIT/250 ML D5W 25,000 UNIT/250 ML IV.SOLN IVC SCH (16:40)
[2019-05-28] MEDS: *HR* Heparin 5,000 UNIT/ML VIAL IVP PRN (21:10)
[2019-05-29 03:18] LABS: Basophils # 0.1 K/mcL (0.0-0.2); Basophils % 0.6 %; Eosinophils # 0.3 K/mcL (0.0-0.6); Eosinophils % 2.8 %; Hematocrit 41.5 % (37.5-50.1); Hemoglobin 14.1 g/dL (12.9-16.9); Immature Granulocytes % 1.5 % (0-4); Lymphocytes # 1.8 K/mcL (0.6-4.6); Lymphocytes % 17.2 %; Mean Corpuscular Hemoglobin 34.6 pg (28.0-33.3); Mean Corpuscular Volume 101.7 fL (83.0-100.0); Mean Platelet Volume 9.4 fL (9.4-12.4); Monocytes # 2.2 K/mcL (0.0-1.3); Monocytes % 20.8 %; Platelet Count 342 K/mcL (140-400); Red Blood Count 4.08 M/mcL (4.19-5.50); Red Cell Distribution Width 12.1 % (11.5-14.5); Segmented Neutrophils % 57.1 %; White Blood Count 10.5 K/mcL (4.3-11.1)
[2019-05-29 03:36] LABS: Alanine Aminotransferase 27 Units/L (7-52); Albumin 3.8 g/dL (3.5-5.7); Albumin/Globulin Ratio 1.2 (1.1-2.2); Alkaline Phosphatase 60 Units/L (34-104); Aspartate Amino Transferase 15 Units/L (13-39); BUN/Creatinine Ratio 35 (6-26); Bilirubin,Total 0.3 mg/dL (0.3-1.0); Blood Urea Nitrogen 24 mg/dL (6-20); Calcium 9.6 mg/dL (8.6-10.3); Carbon Dioxide 27 mEq/L (23-29); Chloride 100 mEq/L (98-107); Globulin 3.1 g/dL (2.4-3.5); Glucose 114 mg/dL (70-105); Osmolality,Calculated 283 (280-300); Potassium 4.3 mEq/L (3.5-5.1); Sodium 134 mEq/L (136-145); Total Protein 6.9 g/dL (6.4-8.9); eGFR For African Americans > 60 (> 60); eGFR For Non-African Americans > 60 (> 60)
[2019-05-29] MEDS: Artificial Tears SOLN 15 ML BOTTLE BOTH EYES SCH ×6 (03:57→23:35)
[2019-05-29 04:05] LABS: Platelet Estimate Normal (Normal)
[2019-05-29 04:26] LABS: ABG Base Excess 6 mEq/L (-2 to 3); ABG HCO3 34 mEq/L (21-27); ABG Oxygen Saturation 99 % (95-98); ABG PCO2 65 mmHg (35-45); ABG PH 7.32 pH Units (7.32-7.45); ABG PO2 135 mmHg (85-104); ABG TCO2 36 mEq/L (20-26); Blood Gas Modality VC; Blood Gas VT 500 cc
[2019-05-29] MEDS: Pantoprazole 40 MG VIAL IVP SCH (07:56)
[2019-05-29] MEDS: amLODIPine 5 MG TABLET PO SCH (07:56)
[2019-05-29] MEDS: Sennosides 8.6 MG TABLET PO SCH ×2 (07:56→20:17)
[2019-05-29] MEDS: Furosemide 20 MG/2 ML VIAL IVP SCH (07:56)
[2019-05-29] MEDS: Multivitamin Liquid 15 ML UDC GTUBE SCH (07:56)
[2019-05-29] MEDS: Thiamine (B-1) 100 MG TABLET PO SCH ×3 (07:56→23:35)
[2019-05-29] MEDS: Chlorhexidine Rinse 15 ML MOUTHWASH MM SCH ×2 (07:56→20:17)
[2019-05-29] MEDS: levoFLOXacin 750 MG/150 ML 750 MG/150 ML BAG IVPB SCH (08:19)
[2019-05-29] MEDS: Potassium Chloride Elixir 20 MEQ/15 ML UDC GTUBE SCH (08:23)
[2019-05-29] MEDS: Heparin 25,000 UNIT/250 ML D5W 25,000 UNIT/250 ML IV.SOLN IVC SCH (08:59)
[2019-05-29] MEDS ORDERED: *HR* Metoprolol 5 MG/5 ML VIAL IVP ONE ×2 (13:38→13:39)
[2019-05-30] MEDS: Heparin 25,000 UNIT/250 ML D5W 25,000 UNIT/250 ML IV.SOLN IVC SCH ×2 (00:54→20:33)
[2019-05-30 03:53] LABS: Basophils # 0.1 K/mcL (0.0-0.2); Basophils % 0.9 %; Eosinophils # 0.3 K/mcL (0.0-0.6); Eosinophils % 3.1 %; Hematocrit 40.3 % (37.5-50.1); Hemoglobin 13.9 g/dL (12.9-16.9); Immature Granulocytes % 1.9 % (0-4); Lymphocytes # 1.5 K/mcL (0.6-4.6); Lymphocytes % 14.8 %; Mean Corpuscular HGB Conc 34.5 g/dL (31.6-35.5); Mean Corpuscular Hemoglobin 34.9 pg (28.0-33.3); Mean Corpuscular Volume 101.3 fL (83.0-100.0); Mean Platelet Volume 9.5 fL (9.4-12.4); Monocytes # 1.6 K/mcL (0.0-1.3); Monocytes % 15.7 %; Neutrophils # 6.5 K/mcL (1.6-8.9); Platelet Count 360 K/mcL (140-400); Red Blood Count 3.98 M/mcL (4.19-5.50); Red Cell Distribution Width 11.9 % (11.5-14.5); Segmented Neutrophils % 63.6 %; White Blood Count 10.2 K/mcL (4.3-11.1)
[2019-05-30] MEDS: Artificial Tears SOLN 15 ML BOTTLE BOTH EYES SCH ×6 (03:56→23:13)
[2019-05-30 04:14] LABS: Alanine Aminotransferase 23 Units/L (7-52); Albumin 3.7 g/dL (3.5-5.7); Albumin/Globulin Ratio 1.1 (1.1-2.2); Alkaline Phosphatase 67 Units/L (34-104); Aspartate Amino Transferase 14 Units/L (13-39); BUN/Creatinine Ratio 38 (6-26); Bilirubin,Indirect 0.3 mg/dL (0.0-1.0); Bilirubin,Total 0.3 mg/dL (0.3-1.0); Blood Urea Nitrogen 27 mg/dL (6-20); Calcium 9.9 mg/dL (8.6-10.3); Carbon Dioxide 40 mEq/L (23-29); Chloride 97 mEq/L (98-107); Globulin 3.5 g/dL (2.4-3.5); Glucose 125 mg/dL (70-105); Osmolality,Calculated 293 (280-300); Potassium 4.2 mEq/L (3.5-5.1); Sodium 138 mEq/L (136-145); Total Protein 7.2 g/dL (6.4-8.9); eGFR For African Americans > 60 (> 60); eGFR For Non-African Americans > 60 (> 60)
[2019-05-30 04:24] LABS: ABG Base Excess 6 mEq/L (-2 to 3); ABG HCO3 34 mEq/L (21-27); ABG Oxygen Saturation 96 % (95-98); ABG PCO2 62 mmHg (35-45); ABG PH 7.35 pH Units (7.32-7.45); ABG PO2 91 mmHg (85-104); ABG TCO2 36 mEq/L (20-26); Blood Gas Modality PRVC; Blood Gas VT 500 cc
[2019-05-30] MEDS ORDERED: *HR* Metoprolol 5 MG/5 ML VIAL IVP ONE (06:29)
[2019-05-30] MEDS ORDERED: *HR* Metoprolol 5 MG/5 ML VIAL IVP STA (06:38)
[2019-05-30] MEDS: Dexmedetomidine HCl 400 MCG/100 ML MLS IVC SCH ×4 (08:39→23:47)
[2019-05-30] MEDS: Thiamine (B-1) 100 MG TABLET PO SCH ×3 (08:40→23:13)
[2019-05-30] MEDS: Furosemide 20 MG/2 ML VIAL IVP SCH (08:40)
[2019-05-30] MEDS: Pantoprazole 40 MG VIAL IVP SCH (08:40)
[2019-05-30] MEDS: Multivitamin Liquid 15 ML UDC GTUBE SCH (08:40)
[2019-05-30] MEDS: amLODIPine 5 MG TABLET PO SCH (08:40)
[2019-05-30] MEDS: Potassium Chloride Elixir 20 MEQ/15 ML UDC GTUBE SCH (08:40)
[2019-05-30] MEDS: Chlorhexidine Rinse 15 ML MOUTHWASH MM SCH ×2 (08:40→20:48)
[2019-05-30] MEDS: Sennosides 8.6 MG TABLET PO SCH (08:40)
[2019-05-30] MEDS ORDERED: Furosemide 20 MG/2 ML VIAL IVP ONE (08:45)
[2019-05-30] MEDS: levoFLOXacin 750 MG/150 ML 750 MG/150 ML BAG IVPB SCH (08:58)
[2019-05-30] MEDS ORDERED: Scopolamine Patch 1.5 MG PATCH.TD72 TD SCH (12:00)
[2019-05-30] MEDS ORDERED: Lactulose Oral Soln 20 GM/30 ML UDC PO ONE (12:16)
[2019-05-30] MEDS: Levalbuterol Neb 1.25 MG/3 ML IH SCH ×2 (15:29→23:09)
[2019-05-30] MEDS ORDERED: Lactulose Oral Soln 20 GM/30 ML UDC PO SCH (21:00)
[2019-05-31] MEDS: Heparin 25,000 UNIT/250 ML D5W 25,000 UNIT/250 ML IV.SOLN IVC SCH ×2 (02:43→14:07)
[2019-05-31] MEDS: Artificial Tears SOLN 15 ML BOTTLE BOTH EYES SCH ×4 (03:14→16:19)
[2019-05-31 03:34] LABS: Basophils # 0.1 K/mcL (0.0-0.2); Basophils % 0.7 %; Eosinophils # 0.1 K/mcL (0.0-0.6); Eosinophils % 1.1 %; Hematocrit 41.2 % (37.5-50.1); Hemoglobin 14.2 g/dL (12.9-16.9); Lymphocytes # 2.1 K/mcL (0.6-4.6); Lymphocytes % 19.3 %; Mean Corpuscular HGB Conc 34.5 g/dL (31.6-35.5); Mean Corpuscular Hemoglobin 34.8 pg (28.0-33.3); Mean Platelet Volume 9.2 fL (9.4-12.4); Monocytes # 1.6 K/mcL (0.0-1.3); Monocytes % 14.8 %; Neutrophils # 6.7 K/mcL (1.6-8.9); Platelet Count 388 K/mcL (140-400); Red Blood Count 4.08 M/mcL (4.19-5.50); Segmented Neutrophils % 63.1 %; White Blood Count 10.6 K/mcL (4.3-11.1)
[2019-05-31 03:50] LABS: BUN/Creatinine Ratio 41 (6-26); Blood Urea Nitrogen 29 mg/dL (6-20); Calcium 10.5 mg/dL (8.6-10.3); Carbon Dioxide 33 mEq/L (23-29); Chloride 97 mEq/L (98-107); Glucose 117 mg/dL (70-105); Osmolality,Calculated 295 (280-300); Potassium 4.2 mEq/L (3.5-5.1); Sodium 139 mEq/L (136-145); eGFR For African Americans > 60 (> 60); eGFR For Non-African Americans > 60 (> 60)
[2019-05-31] MEDS: Levalbuterol Neb 1.25 MG/3 ML IH SCH ×4 (04:02→21:45)
[2019-05-31] MEDS: Dexmedetomidine HCl 400 MCG/100 ML MLS IVC SCH ×3 (04:19→23:37)
[2019-05-31 04:58] LABS: ABG Base Excess 9 mEq/L (-2 to 3); ABG HCO3 38 mEq/L (21-27); ABG Oxygen Saturation 97 % (95-98); ABG PCO2 71 mmHg (35-45); ABG PH 7.34 pH Units (7.32-7.45); ABG PO2 99 mmHg (85-104); ABG TCO2 40 mEq/L (20-26); Blood Gas Modality ASSIST CONTROL; Blood Gas VT 500 cc
[2019-05-31] MEDS: Furosemide 20 MG/2 ML VIAL IVP SCH (08:31)
[2019-05-31] MEDS: Pantoprazole 40 MG VIAL IVP SCH (08:31)
[2019-05-31] MEDS: Chlorhexidine Rinse 15 ML MOUTHWASH MM SCH ×2 (08:31→21:32)
[2019-05-31] MEDS: amLODIPine 5 MG TABLET PO SCH (10:42)
[2019-05-31] MEDS: Thiamine (B-1) 100 MG TABLET PO SCH ×2 (10:42→16:18)
[2019-05-31] MEDS: Potassium Chloride Elixir 20 MEQ/15 ML UDC GTUBE SCH (12:00)
[2019-05-31] MEDS: Multivitamin Liquid 15 ML UDC GTUBE SCH (12:00)
[2019-05-31] MEDS: *HR* LORazepam 2 MG/ML VIAL IVP PRN (22:56)
[2019-06-01] MEDS: Thiamine (B-1) 100 MG TABLET PO SCH ×4 (00:25→23:51)
[2019-06-01] MEDS: Artificial Tears SOLN 15 ML BOTTLE BOTH EYES SCH ×8 (00:37→23:47)
[2019-06-01] MEDS: Levalbuterol Neb 1.25 MG/3 ML IH SCH ×4 (03:29→21:38)
[2019-06-01 04:20] LABS: Basophils # 0.1 K/mcL (0.0-0.2); Basophils % 0.4 %; Eosinophils # 0.1 K/mcL (0.0-0.6); Eosinophils % 0.4 %; Hematocrit 40.9 % (37.5-50.1); Hemoglobin 14.4 g/dL (12.9-16.9); Immature Granulocytes % 0.9 % (0-4); Lymphocytes # 2.1 K/mcL (0.6-4.6); Lymphocytes % 13.3 %; Mean Corpuscular HGB Conc 35.2 g/dL (31.6-35.5); Mean Corpuscular Hemoglobin 34.5 pg (28.0-33.3); Mean Corpuscular Volume 98.1 fL (83.0-100.0); Monocytes # 1.5 K/mcL (0.0-1.3); Monocytes % 9.4 %; Platelet Count 428 K/mcL (140-400); Red Blood Count 4.17 M/mcL (4.19-5.50); Segmented Neutrophils % 75.6 %; White Blood Count 15.9 K/mcL (4.3-11.1)
[2019-06-01 04:36] LABS: BUN/Creatinine Ratio 37 (6-26); Blood Urea Nitrogen 25 mg/dL (6-20); Calcium 10.5 mg/dL (8.6-10.3); Carbon Dioxide 31 mEq/L (23-29); Chloride 98 mEq/L (98-107); Glucose 121 mg/dL (70-105); Magnesium 2.2 mg/dL (1.6-2.6); Osmolality,Calculated 296 (280-300); Phosphorous 4.2 mg/dL (2.7-4.5); Potassium 3.7 mEq/L (3.5-5.1); Sodium 140 mEq/L (136-145); eGFR For African Americans > 60 (> 60); eGFR For Non-African Americans > 60 (> 60)
[2019-06-01] MEDS: Dexmedetomidine HCl 400 MCG/100 ML MLS IVC SCH (05:06)
[2019-06-01] MEDS: Heparin 25,000 UNIT/250 ML D5W 25,000 UNIT/250 ML IV.SOLN IVC SCH (07:10)
[2019-06-01] MEDS: Chlorhexidine Rinse 15 ML MOUTHWASH MM SCH ×2 (07:54→21:06)
[2019-06-01] MEDS: Furosemide 20 MG/2 ML VIAL IVP SCH (08:18)
[2019-06-01] MEDS: amLODIPine 5 MG TABLET PO SCH (08:19)
[2019-06-01] MEDS: Multivitamin Liquid 15 ML UDC GTUBE SCH (08:25)
[2019-06-01] MEDS: Potassium Chloride Elixir 20 MEQ/15 ML UDC GTUBE SCH (08:25)
[2019-06-01] MEDS: Pantoprazole 40 MG VIAL IVP SCH ×2 (08:25→17:24)
[2019-06-01] MEDS: Sennosides/Docusate Sodium TABLET PO SCH (12:16)
[2019-06-01 17:11] LABS: Hematocrit 42.3 % (37.5-50.1); Hemoglobin 15.1 g/dL (12.9-16.9)
[2019-06-01] MEDS ORDERED: Isovue-370 500 ML BOTTLE IVP ONE (17:31)
[2019-06-01] MEDS: Octreotide 400 MCG in 0.9 % Sodium Chloride 100 ML IVC SCH (18:14)
[2019-06-01] MEDS ORDERED: *HR* Rivaroxaban 15 MG TABLET PO SCH (21:00)
[2019-06-01 23:26] LABS: Hematocrit 41.3 % (37.5-50.1); Hemoglobin 14.3 g/dL (12.9-16.9)
[2019-06-02] MEDS: Octreotide 400 MCG in 0.9 % Sodium Chloride 100 ML IVC SCH ×2 (02:57→09:40)
[2019-06-02] MEDS: Levalbuterol Neb 1.25 MG/3 ML IH SCH ×2 (03:57→09:18)
[2019-06-02 05:40] LABS: Basophils # 0.2 K/mcL (0.0-0.2); Basophils % 1.2 %; Eosinophils # 0.2 K/mcL (0.0-0.6); Eosinophils % 1.7 %; Hematocrit 40.7 % (37.5-50.1); Hemoglobin 14.1 g/dL (12.9-16.9); Immature Granulocytes % 1.9 % (0-4); Lymphocytes # 1.7 K/mcL (0.6-4.6); Lymphocytes % 13.5 %; Mean Corpuscular HGB Conc 34.6 g/dL (31.6-35.5); Mean Corpuscular Hemoglobin 34.6 pg (28.0-33.3); Mean Corpuscular Volume 99.8 fL (83.0-100.0); Mean Platelet Volume 9.4 fL (9.4-12.4); Monocytes # 1.4 K/mcL (0.0-1.3); Monocytes % 11.3 %; Neutrophils # 8.8 K/mcL (1.6-8.9); Platelet Count 437 K/mcL (140-400); Red Blood Count 4.08 M/mcL (4.19-5.50); Red Cell Distribution Width 11.9 % (11.5-14.5); Segmented Neutrophils % 70.4 %; White Blood Count 12.5 K/mcL (4.3-11.1)
[2019-06-02 05:57] LABS: Alanine Aminotransferase 30 Units/L (7-52); Albumin 4.3 g/dL (3.5-5.7); Albumin/Globulin Ratio 1.2 (1.1-2.2); Alkaline Phosphatase 78 Units/L (34-104); Aspartate Amino Transferase 20 Units/L (13-39); BUN/Creatinine Ratio 27 (6-26); Bilirubin,Total 0.5 mg/dL (0.3-1.0); Blood Urea Nitrogen 20 mg/dL (6-20); Calcium 10.3 mg/dL (8.6-10.3); Carbon Dioxide 31 mEq/L (23-29); Chloride 97 mEq/L (98-107); Globulin 3.6 g/dL (2.4-3.5); Glucose 165 mg/dL (70-105); Magnesium 2.1 mg/dL (1.6-2.6); Osmolality,Calculated 296 (280-300); Potassium 3.8 mEq/L (3.5-5.1); Sodium 140 mEq/L (136-145); Total Protein 7.9 g/dL (6.4-8.9); eGFR For African Americans > 60 (> 60); eGFR For Non-African Americans > 60 (> 60)
[2019-06-02] MEDS: Pantoprazole 40 MG VIAL IVP SCH ×2 (06:10→16:25)
[2019-06-02] MEDS: Artificial Tears SOLN 15 ML BOTTLE BOTH EYES SCH (06:47)
[2019-06-02] MEDS ORDERED: *HR* Heparin 5,000 UNIT/ML VIAL SQ SCH (07:15)
[2019-06-02] MEDS: Sennosides/Docusate Sodium TABLET PO SCH (07:50)
[2019-06-02] MEDS: Thiamine (B-1) 100 MG TABLET PO SCH ×3 (07:50→23:15)
[2019-06-02] MEDS: Furosemide 20 MG/2 ML VIAL IVP SCH (07:50)
[2019-06-02] MEDS: amLODIPine 5 MG TABLET PO SCH (07:51)
[2019-06-02] MEDS: Multivitamin Liquid 15 ML UDC GTUBE SCH (07:54)
[2019-06-02] MEDS: Chlorhexidine Rinse 15 ML MOUTHWASH MM SCH (07:54)
[2019-06-02] MEDS: Potassium Chloride Elixir 20 MEQ/15 ML UDC GTUBE SCH (07:54)
[2019-06-02] MEDS ORDERED: Octreotide 400 MCG in 0.9 % Sodium Chloride 100 ML IVC SCH (09:45)
[2019-06-02] MEDS ORDERED: *HR* LORazepam 2 MG/ML VIAL IVP PRN (09:45)
[2019-06-02] MEDS ORDERED: Naloxone 0.4 MG/ML INJ IVP PRN (09:45)
[2019-06-02] MEDS ORDERED: Scopolamine Patch 1.5 MG PATCH.TD72 TD SCH (12:00)
[2019-06-02 17:24] LABS: Hemoglobin 15.4 g/dL (12.9-16.9)
[2019-06-02] MEDS: *HR* Heparin 5,000 UNIT/ML VIAL SQ SCH (18:09)
[2019-06-02] MEDS: Menthol 9.1 MG LOZENGE PO PRN ×2 (21:13→23:15)
[2019-06-03] MEDS: Menthol 9.1 MG LOZENGE PO PRN ×2 (03:17→19:43)
[2019-06-03 04:41] LABS: Basophils # 0.1 K/mcL (0.0-0.2); Basophils % 0.8 %; Eosinophils # 0.3 K/mcL (0.0-0.6); Eosinophils % 2.2 %; Hematocrit 44.3 % (37.5-50.1); Immature Granulocytes % 1.3 % (0-4); Lymphocytes # 2.1 K/mcL (0.6-4.6); Lymphocytes % 14.7 %; Mean Corpuscular HGB Conc 33.9 g/dL (31.6-35.5); Mean Corpuscular Volume 100.5 fL (83.0-100.0); Mean Platelet Volume 9.2 fL (9.4-12.4); Monocytes # 1.4 K/mcL (0.0-1.3); Monocytes % 9.7 %; Neutrophils # 10.1 K/mcL (1.6-8.9); Platelet Count 451 K/mcL (140-400); Red Blood Count 4.41 M/mcL (4.19-5.50); Red Cell Distribution Width 11.8 % (11.5-14.5); Segmented Neutrophils % 71.3 %; White Blood Count 14.2 K/mcL (4.3-11.1)
[2019-06-03 05:00] LABS: BUN/Creatinine Ratio 28 (6-26); Blood Urea Nitrogen 19 mg/dL (6-20); Calcium 10.4 mg/dL (8.6-10.3); Carbon Dioxide 26 mEq/L (23-29); Chloride 98 mEq/L (98-107); Glucose 126 mg/dL (70-105); Osmolality,Calculated 290 (280-300); Potassium 3.3 mEq/L (3.5-5.1); Sodium 138 mEq/L (136-145); eGFR For African Americans > 60 (> 60); eGFR For Non-African Americans > 60 (> 60)
[2019-06-03] MEDS: *HR* Heparin 5,000 UNIT/ML VIAL SQ SCH ×2 (06:19→16:32)
[2019-06-03] MEDS: Pantoprazole 40 MG VIAL IVP SCH ×2 (06:31→16:32)
[2019-06-03] MEDS ORDERED: 0.9 % Sodium Chloride 500 ML IVC SCH (08:15)
[2019-06-03] MEDS ORDERED: Tetracaine/Benzocaine/Butamben 1 SPRAY AEROSOL MM ONE (08:22)
[2019-06-03] MEDS ORDERED: Propofol 500 MG/50 ML INFUS..BTL ONE (09:10)
[2019-06-03] MEDS: Thiamine (B-1) 100 MG TABLET PO SCH ×3 (10:41→23:13)
[2019-06-03] MEDS: Sennosides/Docusate Sodium TABLET PO SCH (10:41)
[2019-06-03] MEDS: amLODIPine 5 MG TABLET PO SCH (10:41)
[2019-06-03] MEDS: Folic Acid 1 MG TABLET PO SCH (10:41)
[2019-06-03] MEDS: Multivit/Ca/Min/Fe/FA 1 TAB TABLET PO SCH (10:41)
[2019-06-03] MEDS ORDERED: Fluticasone Propionate Nasal 50 MCG/SPRAY BOTTLE NS PRN (16:50)
[2019-06-03] MEDS: Hydrocortisone Acetate 25 MG RECTAL SUPPOSITORY RC SCH (20:35)
[2019-06-03] MEDS: *HR* Rivaroxaban 15 MG TABLET PO SCH (20:44)
[2019-06-04 04:42] LABS: Hematocrit 43.7 % (37.5-50.1); Hemoglobin 14.8 g/dL (12.9-16.9); Mean Corpuscular HGB Conc 33.9 g/dL (31.6-35.5); Mean Corpuscular Hemoglobin 34.3 pg (28.0-33.3); Mean Corpuscular Volume 101.2 fL (83.0-100.0); Mean Platelet Volume 9.4 fL (9.4-12.4); Platelet Count 459 K/mcL (140-400); Red Blood Count 4.32 M/mcL (4.19-5.50); Red Cell Distribution Width 11.6 % (11.5-14.5); White Blood Count 8.7 K/mcL (4.3-11.1)
[2019-06-04 05:03] LABS: BUN/Creatinine Ratio 29 (6-26); Blood Urea Nitrogen 21 mg/dL (6-20); Carbon Dioxide 26 mEq/L (23-29); Chloride 99 mEq/L (98-107); Glucose 100 mg/dL (70-105); Magnesium 2.1 mg/dL (1.6-2.6); Osmolality,Calculated 291 (280-300); Potassium 3.1 mEq/L (3.5-5.1); Sodium 139 mEq/L (136-145); eGFR For African Americans > 60 (> 60); eGFR For Non-African Americans > 60 (> 60)
[2019-06-04] MEDS: *HR* Rivaroxaban 15 MG TABLET PO SCH (07:59)
[2019-06-04] MEDS: Hydrocortisone Acetate 25 MG RECTAL SUPPOSITORY RC SCH (08:00)
[2019-06-04] MEDS: amLODIPine 5 MG TABLET PO SCH (08:00)
[2019-06-04] MEDS: Folic Acid 1 MG TABLET PO SCH (08:00)
[2019-06-04] MEDS: Multivit/Ca/Min/Fe/FA 1 TAB TABLET PO SCH (08:00)
[2019-06-04] MEDS: Thiamine (B-1) 100 MG TABLET PO SCH ×2 (08:00→16:43)
[2019-06-04] MEDS: Sennosides/Docusate Sodium TABLET PO SCH (08:00)
[2019-06-04] MEDS ORDERED: Loratadine 10 MG TABLET PO SCH (09:00)
[2019-06-04] MEDS ORDERED: Lisinopril 20 MG TABLET PO SCH (09:00)
[2019-06-04] MEDS ORDERED: FLU Vac QV 19-20 (6Month+)/PF 0.5 ML SYRINGE IM ONE (10:39)
[2019-06-04 15:13] VITALS: BP 115/82
== END 2019-06-04 18:58 | DRG 817 ==
LOC: EMEROOARM 22:13 → SUATTDRO 05-18 01:18 → ICNU 05-18 01:18 → 3BNU 06-02 14:10
PROVIDERS: ADMIT Internal Medicine; ATTEND Internal Medicine

== ENCOUNTER 2021-02-03 18:02 | Observation (INO) ==
[2021-02-03] MEDS ORDERED: Acetaminophen 325 MG TABLET PO PRN (20:17)
[2021-02-03] MEDS ORDERED: Ondansetron 4 MG/2 ML VIAL IVP PRN (20:17)
[2021-02-03] MEDS ORDERED: Naloxone 0.4 MG/ML INJ IVP PRN (20:17)
[2021-02-03] MEDS ORDERED: 0.9 % Sodium Chloride 1,000 ML IVC SCH (20:30)
[2021-02-03 21:01] LABS: Basophils % 0.1 %; Hematocrit 30.9 % (37.5-50.1); Hemoglobin 10.9 g/dL (12.9-16.9); Immature Granulocytes % 0.3 % (0-4); Lymphocytes # 1.4 K/mcL (0.6-4.6); Lymphocytes % 14.4 %; Mean Corpuscular HGB Conc 35.3 g/dL (31.6-35.5); Mean Corpuscular Hemoglobin 34.1 pg (28.0-33.3); Mean Corpuscular Volume 96.6 fL (83.0-100.0); Mean Platelet Volume 10.4 fL (9.4-12.4); Monocytes # 1.1 K/mcL (0.0-1.3); Monocytes % 11.5 %; Neutrophils # 7.3 K/mcL (1.6-8.9); Platelet Count 157 K/mcL (140-400); Red Cell Distribution Width 12.3 % (11.5-14.5); Segmented Neutrophils % 73.7 %; White Blood Count 9.9 K/mcL (4.3-11.1)
[2021-02-03 21:09] LABS: INR 1.1
[2021-02-03] MEDS ORDERED: Perflutren Lipid Microsphere 1.3 ML in 0.9 % Sodium Chloride 8.7 ML IVP PRN (21:15)
[2021-02-03 21:23] LABS: Alanine Aminotransferase 9 Units/L (7-52); Albumin 3.8 g/dL (3.5-5.7); Albumin/Globulin Ratio 1.7 (1.1-2.2); Alkaline Phosphatase 48 Units/L (34-104); Aspartate Amino Transferase 12 Units/L (13-39); BUN/Creatinine Ratio 29 (6-26); Bilirubin,Total 1.5 mg/dL (0.3-1.0); Blood Urea Nitrogen 51 mg/dL (6-20); Calcium 8.2 mg/dL (8.6-10.3); Carbon Dioxide 32 mEq/L (23-29); Chloride 85 mEq/L (98-107); Globulin 2.2 g/dL (2.4-3.5); Glucose 97 mg/dL (70-105); Magnesium 1.8 mg/dL (1.6-2.6); Osmolality,Calculated 284 (280-300); Potassium 2.8 mEq/L (3.5-5.1); Sodium 130 mEq/L (136-145); Troponin I < 0.03 ng/mL (< 0.04); eGFR For African Americans 50 (> 60); eGFR For Non-African Americans 41 (> 60)
[2021-02-03] MEDS ORDERED: Potassium Chloride 40 MEQ, Lidocaine 1% 2 ML in 0.9 % Sodium Chloride 500 ML IVPB ONE (21:48)
[2021-02-03] MEDS ORDERED: Pantoprazole 80 MG in 0.9 % Sodium Chloride 50 ML IVPB ONE (22:06)
[2021-02-03 22:12] LABS: Ethanol < 10 mg/dL (Less than 10)
[2021-02-03] MEDS ORDERED: Pantoprazole 40 MG VIAL IVP ONE (22:12)
[2021-02-04 01:08] LABS: Bilirubin,Urine Negative (Negative); Blood,Urine Negative (Negative); Clarity,Urine Clear (Clear); Color,Urine Colorless (Yellow); Glucose,Urine (UA) 300 mg/dL (Normal); Ketones,Urine 20 mg/dL (Negative); Leukocyte Esterase,Urine Negative (Negative); Nitrite,Urine Negative (Negative); Protein,Urine Negative (Neg-Trace); RBC,Urine 0-3 per hpf (0-3); Specific Gravity,Urine 1.019 (1.010-1.025); Urobilinogen,Urine Normal (Normal); WBC,Urine 0-3 per hpf (0-3)
[2021-02-04 01:22] LABS: Amphetamine Screen,Urine Negative ng/mL (Cutoff=1000); Barbiturate Screen,Urine Negative ng/mL (Cutoff=200); Benzodiazepines Screen,Urine Negative ng/mL (Cutoff=200); Cannabinoid Screen,Urine Positive ng/mL (Cutoff = 50); Cocaine Screen,Urine Negative ng/mL (Cutoff= 300); Opiate Screen,Urine Positive ng/mL (Cutoff=300); Phencyclidine Screen,Urine Negative ng/mL (Cutoff=25)
[2021-02-04] MEDS ORDERED: *HR* HYDROmorphone (PF) 1 MG/ML SYRINGE IVP ONE (04:14)
[2021-02-04] MEDS: Pantoprazole 40 MG VIAL IVP SCH ×2 (05:49→17:24)
[2021-02-04 06:20] LABS: Basophils % 0.1 %; Eosinophils % 0.3 %; Hematocrit 32.6 % (37.5-50.1); Hemoglobin 11.3 g/dL (12.9-16.9); Immature Granulocytes % 0.4 % (0-4); Lymphocytes # 1.2 K/mcL (0.6-4.6); Lymphocytes % 17.6 %; Mean Corpuscular HGB Conc 34.7 g/dL (31.6-35.5); Mean Corpuscular Hemoglobin 34.1 pg (28.0-33.3); Mean Corpuscular Volume 98.5 fL (83.0-100.0); Mean Platelet Volume 10.2 fL (9.4-12.4); Monocytes # 0.8 K/mcL (0.0-1.3); Monocytes % 11.1 %; Neutrophils # 4.9 K/mcL (1.6-8.9); Platelet Count 162 K/mcL (140-400); Red Blood Count 3.31 M/mcL (4.19-5.50); Red Cell Distribution Width 12.2 % (11.5-14.5); Segmented Neutrophils % 70.5 %; White Blood Count 6.9 K/mcL (4.3-11.1)
[2021-02-04 06:39] LABS: Chol/HDL Ratio 2.4 (0-4.9); Phosphorous 2.7 mg/dL (2.7-4.5)
[2021-02-04 06:42] LABS: % Iron Saturation 13 % (20-55); Iron 34 mcg/dL (65-175); Lactate Dehydrogenase 121 Units/L (140-271); Transferrin 185 mg/dL (203-362)
[2021-02-04 06:54] LABS: BUN/Creatinine Ratio 28 (6-26); Blood Urea Nitrogen 37 mg/dL (6-20); Calcium 8.6 mg/dL (8.6-10.3); Carbon Dioxide 29 mEq/L (23-29); Chloride 92 mEq/L (98-107); Glucose 88 mg/dL (70-105); Osmolality,Calculated 278 (280-300); Potassium 3.6 mEq/L (3.5-5.1); Sodium 130 mEq/L (136-145); eGFR For African Americans > 60 (> 60); eGFR For Non-African Americans 57 (> 60)
[2021-02-04 06:58] LABS: Ferritin 269 ng/mL (20-250)
[2021-02-04 10:52] LABS: Vitamin D 25 Hydroxy 33 ng/mL (30-80)
[2021-02-04 10:53] LABS: Vitamin B12 211 pg/mL (250-1100)
[2021-02-05] MEDS: Pantoprazole 40 MG VIAL IVP SCH (05:50)
[2021-02-05 07:57] LABS: Basophils % 0.3 %; Eosinophils # 0.1 K/mcL (0.0-0.6); Hematocrit 32.1 % (37.5-50.1); Hemoglobin 11.3 g/dL (12.9-16.9); Immature Granulocytes % 0.5 % (0-4); Lymphocytes # 1.5 K/mcL (0.6-4.6); Lymphocytes % 25.1 %; Mean Corpuscular HGB Conc 35.2 g/dL (31.6-35.5); Mean Corpuscular Hemoglobin 34.7 pg (28.0-33.3); Mean Corpuscular Volume 98.5 fL (83.0-100.0); Mean Platelet Volume 10.5 fL (9.4-12.4); Monocytes % 16.9 %; Neutrophils # 3.4 K/mcL (1.6-8.9); Platelet Count 202 K/mcL (140-400); Red Blood Count 3.26 M/mcL (4.19-5.50); Red Cell Distribution Width 11.7 % (11.5-14.5); Segmented Neutrophils % 56.2 %
[2021-02-05 08:07] LABS: BUN/Creatinine Ratio 24 (6-26); Blood Urea Nitrogen 22 mg/dL (6-20); Carbon Dioxide 26 mEq/L (23-29); Chloride 93 mEq/L (98-107); Glucose 81 mg/dL (70-105); Magnesium 2.1 mg/dL (1.6-2.6); Osmolality,Calculated 270 (280-300); Phosphorous 2.5 mg/dL (2.7-4.5); Potassium 3.5 mEq/L (3.5-5.1); Sodium 129 mEq/L (136-145); eGFR For African Americans > 60 (> 60); eGFR For Non-African Americans > 60 (> 60)
[2021-02-05] MEDS ORDERED: Lidocaine -MPF 2% 5 ML VIAL ONE (08:24)
[2021-02-05] MEDS ORDERED: *HR* Propofol 200 MG/20 ML VIAL IVP ONE ×2 (08:24→17:50)
[2021-02-05 11:20] VITALS: PULSE 83; TEMP 98.3; O2SAT 97
[2021-02-05 15:16] VITALS: BP 125/83
== END 2021-02-05 17:51 | disposition home or self-care (01) ==
LOC: 3NENU
PROVIDERS: ADMIT Internal Medicine; ATTEND Internal Medicine